=== PATIENT | female | born 1975 | race Caucasian/White ===

== ENCOUNTER 2017-01-21 19:10 | Emergency (ER) | payer MEDICAID ==
[~2017-01-21] VITALS: Ht 152.4 cm; Wt 90.9 kg
[~2017-01-21 19:10] MED LIST: AUGM875T28 PO; VENTAER INH
[2017-01-21] MEDS ORDERED: NS 500 ML IV ONE (23:15)
[2017-01-21] MEDS ORDERED: KETOROLAC 30 MG/ML VIAL (J1885) IV ONE (23:30)
[2017-01-21 23:49] LABS: BASO % 0.2 % (0.0-1.0); EOS # 0.1 10^3/uL (0.0-0.50); IMMATURE GRANULOCYTE % 0.5 % (0-0); LYMPH % 33.2 % (24.0-44.0); MEAN CORPUSCULAR HEMOGLOBIN 32.1 pg (27.0-33.0); MEAN CORPUSCULAR HGB CONC 35.1 g/dl (32.0-36.5); MEAN CORPUSCULAR VOLUME 91.3 fl (80.0-96.0); MONO # 0.9 10^3/uL (0.0-0.8); MONO % 6.2 % (0.0-5.0); NEUTROPHILS # 8.5 10^3/uL (1.8-7.7); NEUTROPHILS % 58.9 % (36.0-66.0); PLATELET COUNT, AUTOMATED 314 10^3/uL (150-450); WHITE BLOOD COUNT 14.4 10^3/uL (4.0-10.0)
[2017-01-21] MEDS ORDERED: KEFL500C17 PO (23:57)
[2017-01-22] MEDS ORDERED: CEFTRIAXONE SOD 1 GM in APPROPRIATE DILUENT 1 EA IV ONE ×2
--- NOTE | 2017-01-22 | REPUSA ---
CT of the abdomen and pelvis without contrast Clinical statement: Pain, CVA tenderness. Technique: Multiple axial CT images were obtained from the base of the lungs to the floor of the pelv is utilizing 5 mm axial slices without administration of contrast. Coronal and sagittal reconstructio ns were also obtained. Comparison: 05/30/2013. Findings: Chest: The visualized lung bases are clear. Abdomen: The kidneys are normal in size bilaterally. There is no evidence of hydronephrosis or nephro lithiasis. The liver is enlarged measuring 25.3 cm in diameter, with diffuse low attenuation of the h epatic parenchyma. No focal hepatic masses are seen. Several small gallstones are seen in the neck of the gallbladder. No inflammatory changes are appreciated. The spleen, pancreas, and adrenal glands a re unremarkable. The aorta demonstrates normal caliber and contour. There is no abdominal lymphadenop athy or ascites. Pelvis: The bowel is unremarkable, with no obstructive or inflammatory changes. The appendix is sonido l. The urinary bladder is within normal limits. There is no pelvic lymphadenopathy or ascites. The ot her pelvic structures appear unremarkable. Bones: There are no suspicious osseous abnormalities seen. Impression: 1. Hepatomegaly with diffuse fatty infiltration of the liver. 2. Cholelithiasis without evidence of acute cholecystitis. 3. No evidence of hydronephrosis or nephrolithiasis. 4. No obstructive or inflammatory bowel changes.
[2017-01-22 00:01] LABS: LYMPH # 4.8 10^3/uL (1.5-4.5)
[2017-01-22 00:12] LABS: ALBUMIN 3.9 GM/DL (3.2-5.2); ALBUMIN/GLOBULIN RATIO 1.15 (1.00-1.93); ALKALINE PHOSPHATASE 80 U/L (45-117); ALT/SGPT 30 U/L (12-78); ANION GAP 7 MEQ/L (8-16); AST/SGOT 18 U/L (7-37); BILIRUBIN,DIRECT 0.1 MG/DL (0.0-0.2); BILIRUBIN,TOTAL 0.5 MG/DL (0.2-1.0); BLOOD UREA NITROGEN 11 MG/DL (7-18); CALCIUM LEVEL 8.9 MG/DL (8.5-10.1); CARBON DIOXIDE LEVEL 28 MEQ/L (21-32); CHLORIDE LEVEL 104 MEQ/L (98-107); CREATININE FOR GFR 0.98 MG/DL (0.55-1.02); GLOMERULAR FILTRATION RATE > 60.0 (>58); GLUCOSE, FASTING 104 MG/DL (70-105); POTASSIUM SERUM 4.3 MEQ/L (3.5-5.1); SODIUM LEVEL 139 MEQ/L (136-145); TOTAL PROTEIN 7.3 GM/DL (6.4-8.2)
[2017-01-22 00:50] VITALS: BP 132/85
== END 2017-01-22 01:01 | disposition home or self-care (01) ==
LOC: M ED 19:10
DX: N10 Acute pyelonephritis (principal)
CPT/HCPCS: 74176; 80048; 80076; 81001; 83690; 85025; 87088; 87186; 96365; 96375; 99284; J1885

== ENCOUNTER 2017-10-19 19:26 | Emergency (ER) | payer MEDICAID ==
[2017-10-19] MEDS: predniSONE 20 MG TAB PO (20:13)
[2017-10-19] MEDS: NORCO, ANEXSIA 5/325MG TABLET (HYDROcodone/ACETAMINOPHEN) PO (20:13)
[2017-10-19] MEDS: IPRATROPIUM 0.5MG/ALBUTEROL 2.5MG INH SOL UD 3ML (DUONEB)(J7620) NEB (20:43)
[2017-10-19] MEDS: ALBUTEROL SULFATE 2.5 MG/0.5 ML INH NEB SOLN NEB (20:43)
[2017-10-19] MEDS: AZITHROMYCIN 250 MG TAB PO (21:01)
== END 2017-10-19 21:13 | disposition home or self-care (01) ==
LOC: M ED 19:26
DX: J20.9 Acute bronchitis, unspecified (principal); J45.909 Unspecified asthma, uncomplicated; S46.912A Strain of unspecified muscle, fascia and tendon at shoulder and upper arm level, left arm, initial encounter; X58.XXXA Exposure to other specified factors, initial encounter; Y92.89 Other specified places as the place of occurrence of the external cause; R51 Headache; Z87.19 Personal history of other diseases of the digestive system; F17.210 Nicotine dependence, cigarettes, uncomplicated; Z91.040 Latex allergy status
CPT/HCPCS: 71046

== ENCOUNTER 2018-09-18 21:08 | Emergency (ER) | payer MEDICAID, SELFPAY ==
[~2018-09-18] VITALS: Ht 152.4 cm; Wt 90.9 kg
[~2018-09-18 21:08] MED LIST changes: +ALBU83IN INH; +ALBU83IN NEB; +HYDR-3715 PO; +KEFL500C17 PO; +PRED20TA PO; +TYLE500T78 PO; +ZITHTAB PO
[2018-09-18 23:21] VITALS: BP 185/97
[2018-09-18] MEDS ORDERED: diphenhydrAMINE INJ 50MG/ML VIAL (J1200) IV STA (23:32)
[2018-09-18] MEDS ORDERED: KETOROLAC 30 MG/ML VIAL (J1885) IV ONE (23:45)
[2018-09-18] MEDS ORDERED: NS 1,000 ML IV ONE (23:45)
[2018-09-18] MEDS ORDERED: METOCLOPRAMIDE INJ 10MG/2ML VIAL (J2765) IV ONE (23:45)
[2018-09-19] MEDS ORDERED: REGL10TA6 PO (01:09)
== END 2018-09-19 01:28 | disposition home or self-care (01) ==
LOC: M ED 21:08
DX: G43.909 Migraine, unspecified, not intractable, without status migrainosus (principal); J45.909 Unspecified asthma, uncomplicated
CPT/HCPCS: 96374; 96375; 99284; J1200; J1885; J2765

== ENCOUNTER 2019-05-01 20:37 | Emergency (ER) | payer SELFPAY ==
[~2019-05-01] VITALS: Ht 152.4 cm; Wt 97.5 kg
[~2019-05-01 20:37] MED LIST changes: +REGL10TA6 PO
[2019-05-01 21:10] LABS: HEMOGLOBIN 15.6 g/dl (12.0-15.5); MEAN CORPUSCULAR HEMOGLOBIN 30.6 pg (27.0-33.0); MEAN CORPUSCULAR HGB CONC 33.9 g/dl (32.0-36.5); MEAN CORPUSCULAR VOLUME 90.4 fl (80.0-96.0); PLATELET COUNT, AUTOMATED 292 10^3/uL (150-450); RED BLOOD COUNT 5.09 10^6/uL (4.00-5.40); WHITE BLOOD COUNT 11.6 10^3/uL (4.0-10.0)
[2019-05-01 21:29] LABS: ATYPICAL LYMPH 3 % (0-5); BASOPHILS 1 % (0-1); EOSINOPHILS 1 % (0-3); LYMPHOCYTES 42 % (16-44); MONOCYTES 2 % (0-5); NEUTROPHILS 51 % (28-66)
[2019-05-01 21:30] LABS: ANISOCYTOSIS 1+
[2019-05-01 21:32] LABS: OVALOCYTES 1+; PLATELET ESTIMATE NORMAL (NORMAL); TEAR DROP CELLS 1+
[2019-05-01 21:36] LABS: BLOOD UREA NITROGEN 11 MG/DL (7-18); CALCIUM LEVEL 9.1 MG/DL (8.5-10.1); CARBON DIOXIDE LEVEL 29 MEQ/L (21-32); CHLORIDE LEVEL 105 MEQ/L (98-107); CK-MB VALUE MASS 1.9 NG/ML (<3.6); CPK CREATINE PHOSPHOKINASE 209 U/L (26-192); CREATININE FOR GFR 1.01 MG/DL (0.55-1.30); GLOMERULAR FILTRATION RATE > 60.0 (>58); GLUCOSE, FASTING 132 MG/DL (70-100); MB/CK RELATIVE INDEX 0.91 (< OR =4); POTASSIUM SERUM 3.8 MEQ/L (3.5-5.1); SODIUM LEVEL 141 MEQ/L (136-145); TROPONIN I < 0.02 NG/ML (< 0.10)
[2019-05-01] MEDS ORDERED: LORazepam 2 MG/ML VIAL (J2060) IV STA (21:56)
[2019-05-01 23:41] LABS: CK-MB VALUE MASS 1.8 NG/ML (<3.6); MB/CK RELATIVE INDEX 1.12 (< OR =4); TROPONIN I 0.02 NG/ML (< 0.10)
[2019-05-02] MEDS ORDERED: NORV5TAB PO (00:41)
[2019-05-02] MEDS ORDERED: NAPR-837 PO (00:41)
[2019-05-02] MEDS ORDERED: amLODIPine 5 MG TAB PO ONE (00:45)
[2019-05-02] MEDS ORDERED: NAPROXEN 250 MG TAB PO ONE (00:45)
[2019-05-02 00:57] VITALS: BP 168/84
[2019-05-02 01:00] VITALS: BP 168/84
--- NOTE | 2019-05-02 08:12 | REP ---
Portable chest x-ray: Single view. History: Chest pain. Comparison study: October 19, 2017. Findings: The lungs are symmetrically aerated and clear. Pleural angles are sharp. Heart is not enlarged. Pulmonary vasculature is not increased. Impression: No active disease. Electronically Signed by Med Shaver MD 05/02/2019 08:03 A
--- NOTE | 2019-05-02 18:44 | ECGEPIP ---
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
--- NOTE | 2019-05-02 18:45 | ECGEPIP ---
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
== END 2019-05-02 01:00 | disposition home or self-care (01) ==
LOC: M ED 20:37
DX: R07.89 Other chest pain (principal); I10 Essential (primary) hypertension; J45.909 Unspecified asthma, uncomplicated; Z91.040 Latex allergy status
CPT/HCPCS: 36415; 71045; 80048; 82550; 82553; 84484; 85025; 93005; 93041; 94760; 96374; 99285; J2060

== ENCOUNTER 2019-06-11 23:01 | Emergency (ER) | payer MEDICAID, SELFPAY ==
[~2019-06-11] VITALS: Ht 152.4 cm; Wt 97.7 kg
[~2019-06-11 23:01] MED LIST changes: +NAPR-837 PO; +NORV5TAB PO
[2019-06-11 23:44] LABS: BASO # 0.1 10^3/uL (0.0-0.2); BASO % 0.4 % (0.0-1.0); EOS # 0.2 10^3/uL (0.0-0.5); EOS % 1.1 % (0.0-3.0); HEMATOCRIT 45.2 % (36.0-47.0); HEMOGLOBIN 15.4 g/dl (12.0-15.5); LYMPH # 5.5 10^3/uL (1.5-5.0); LYMPH % 39.6 % (24.0-44.0); MEAN CORPUSCULAR HEMOGLOBIN 30.5 pg (27.0-33.0); MEAN CORPUSCULAR HGB CONC 34.1 g/dl (32.0-36.5); MEAN CORPUSCULAR VOLUME 89.5 fl (80.0-96.0); MONO # 1.1 10^3/uL (0.0-0.8); MONO % 7.9 % (0.0-5.0); NEUTROPHILS # 7.1 10^3/uL (1.5-8.5); NEUTROPHILS % 50.7 % (36.0-66.0); PLATELET COUNT, AUTOMATED 245 10^3/uL (150-450); RED BLOOD COUNT 5.05 10^6/uL (4.00-5.40)
[2019-06-11 23:49] LABS: WHITE BLOOD COUNT 13.9 10^3/uL (4.0-10.0)
[2019-06-11 23:53] VITALS: BP 166/88
[2019-06-12 00:05] LABS: HEMOGLOBIN A1c 5.7 %
[2019-06-12 00:18] LABS: ERYTHROCYTE SEDIMENTATION RATE 7 mm/hr (0-20)
[2019-06-12] MEDS ORDERED: NORV5TAB PO (00:22)
[2019-06-12] MEDS ORDERED: VENTAER INH (00:22)
[2019-06-12 00:26] LABS: APPEARANCE, URINE HAZY (CLEAR); BACTERIA, URINE AUTO NEGATIVE (NEGATIVE); BILIRUBIN, URINE AUTO NEGATIVE (NEGATIVE); BLOOD, URINE BLOOD 3+ (NEGATIVE); CALCIUM OXALATE CRYSTALS SMALL; COLOR, URINE YELLOW (YELLOW); GLUCOSE, URINE (UA) AUTO NEGATIVE (NEGATIVE); KETONE, URINE AUTO NEGATIVE (NEGATIVE); LEUKOCYTE ESTERASE, URINE AUTO NEGATIVE (NEGATIVE); MUCUS, URINE SMALL (NEGATIVE); NITRITE, URINE AUTO NEGATIVE (NEGATIVE); PROTEIN, URINE AUTO 2+ mg/dL (NEGATIVE); RBC, URINE AUTO 155 /HPF (0-3); SPECIFIC GRAVITY URINE AUTO 1.024 (1.002-1.035); SQUAMOUS EPITHELIAL CELL UR AU 1 /HPF (0-6); UROBILINOGEN, URINE AUTO 0.2 mg/dL (0.0-2.0); WBC, URINE AUTO 3 /HPF (0-3)
--- NOTE | 2019-06-12 02:00 | REP ---
Clinical: Wheezing . Comparison: 10/19/2017, 05/01/2019 . Technique: PA and lateral. Findings: The mediastinum and cardiac silhouette are normal. The lung xiao are clear and without acute consolidation, effusion, or pneumothorax. The skeletal structures are intact and normal. Impression: 1. No acute cardiopulmonary process. Electronically Signed by Riki Dodge MD 06/12/2019 01:51 A
--- NOTE | 2019-06-13 00:47 | ECGEPIP ---
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
== END 2019-06-12 00:35 | disposition home or self-care (01) ==
LOC: M ED 23:01
DX: L84 Corns and callosities (principal); I10 Essential (primary) hypertension; R00.0 Tachycardia, unspecified; J45.909 Unspecified asthma, uncomplicated; F17.210 Nicotine dependence, cigarettes, uncomplicated; Z91.040 Latex allergy status; Z79.51 Long term (current) use of inhaled steroids; Z79.899 Other long term (current) drug therapy

== ENCOUNTER → 2019-06-18 | Outpatient (REF) | payer MEDICAID ==
[2019-06-18 13:22] LABS: BASO % 0.3 % (0.0-1.0); EOS # 0.2 10^3/uL (0.0-0.5); EOS % 1.3 % (0.0-3.0); HEMATOCRIT 48.3 % (36.0-47.0); HEMOGLOBIN 16.4 g/dl (12.0-15.5); LYMPH # 4.2 10^3/uL (1.5-5.0); LYMPH % 32.1 % (24.0-44.0); MEAN CORPUSCULAR HEMOGLOBIN 30.5 pg (27.0-33.0); MEAN CORPUSCULAR VOLUME 89.9 fl (80.0-96.0); MONO # 0.8 10^3/uL (0.0-0.8); MONO % 6.1 % (0.0-5.0); NEUTROPHILS # 7.8 10^3/uL (1.5-8.5); NEUTROPHILS % 59.8 % (36.0-66.0); PLATELET COUNT, AUTOMATED 286 10^3/uL (150-450); RED BLOOD COUNT 5.37 10^6/uL (4.00-5.40); WHITE BLOOD COUNT 13.1 10^3/uL (4.0-10.0)
[2019-06-18 13:24] LABS: AMORPHOUS SEDIMENT SMALL (NEGATIVE); APPEARANCE, URINE TURBID (CLEAR); BACTERIA, URINE AUTO NEGATIVE (NEGATIVE); BILIRUBIN, URINE AUTO NEGATIVE (NEGATIVE); BLOOD, URINE BLOOD 1+ (NEGATIVE); COLOR, URINE YELLOW (YELLOW); GLUCOSE, URINE (UA) AUTO NEGATIVE (NEGATIVE); KETONE, URINE AUTO TRACE mg/dL (NEGATIVE); LEUKOCYTE ESTERASE, URINE AUTO NEGATIVE (NEGATIVE); MUCUS, URINE SMALL (NEGATIVE); NITRITE, URINE AUTO NEGATIVE (NEGATIVE); PROTEIN, URINE AUTO 2+ mg/dL (NEGATIVE); RBC, URINE AUTO 1 /HPF (0-3); SPECIFIC GRAVITY URINE AUTO 1.024 (1.002-1.035); SQUAMOUS EPITHELIAL CELL UR AU 5 /HPF (0-6); UROBILINOGEN, URINE AUTO 0.2 mg/dL (0.0-2.0); WBC, URINE AUTO 1 /HPF (0-3)
[2019-06-18 13:41] LABS: ALBUMIN 3.7 GM/DL (3.2-5.2); ALT/SGPT 29 U/L (12-78); BILIRUBIN,TOTAL 0.3 MG/DL (0.2-1.0); BLOOD UREA NITROGEN 9 MG/DL (7-18); CARBON DIOXIDE LEVEL 25 MEQ/L (21-32); CHLORIDE LEVEL 104 MEQ/L (98-107); CHOLESTEROL LEVEL 222 MG/DL (<200); CHOLESTEROL RISK RATIO 6.937 (<5); CREATININE FOR GFR 0.85 MG/DL (0.55-1.30); FERRITIN 24 NG/ML (8-252); FOLATE 10.5 NG/ML (>5.4); FREE T4 1.07 NG/DL (0.76-1.46); GLOMERULAR FILTRATION RATE > 60.0 (>58); GLUCOSE, FASTING 124 MG/DL (70-100); HDL CHOLESTEROL 32 MG/DL (>40); IRON (FE) 50 UG/DL (50-170); LDL CHOLESTEROL 128 MG/DL (<100); MAGNESIUM LEVEL 1.8 MG/DL (1.8-2.4); NON-HDL-C 190 MG/DL; POTASSIUM SERUM 4.2 MEQ/L (3.5-5.1); SODIUM LEVEL 137 MEQ/L (136-145); TOTAL 25(OH) VITAMIN D 8.1 NG/ML (30.0-100.0); TRIGLYCERIDES LEVEL 310 MG/DL (<150); VITAMIN B12 LEVEL 325 PG/ML (247-911)
== END ==
LOC: M LAB REF 12:11
PROVIDERS: ATTEND Nurse Practitioner Family
DX: Z13.29 Encounter for screening for other suspected endocrine disorder (principal); Z13.9 Encounter for screening, unspecified; E66.9 Obesity, unspecified; I10 Essential (primary) hypertension

== ENCOUNTER 2019-07-12 13:26 | Emergency (ER) | payer MEDICAID, OTHER ==
[~2019-07-12] VITALS: Ht 152.4 cm; Wt 98.2 kg
[2019-07-12] MEDS ORDERED: NORCO, ANEXSIA 5/325MG TABLET (HYDROcodone/ACETAMINOPHEN) PO ONE (14:00)
[2019-07-12] MEDS ORDERED: GABAPENTIN 300 MG CAP PO ONE (14:00)
--- NOTE | 2019-07-12 14:40 | REP ---
Clinical: Left shoulder pain . Technique: Internal rotation, external rotation, and Y view left shoulder . Findings: No acute fracture or dislocation. The acromioclavicular and glenohumeral joints are intact. No periarticular calcifications or degenerative changes are appreciated. Sub acromial space is normal. Surrounding soft tissues are unremarkable. Impression: Normal age-appropriate left shoulder radiographs. Electronically Signed by Riki Dodge MD 07/12/2019 02:31 P
--- NOTE | 2019-07-12 14:41 | REP ---
Clinical: Left upper extremity radiculopathy. Technique: Axial noncontrast images from the skull base to the thoracic inlet with coronal and sagittal re-formations. Comparison: 11/14/2015. Findings:Straightening of normal lordosis noted along with minimal disc space narrowing and small posterior osteophytes primarily involving C5-6 and C4-5. Spinal canal is patent. Posterior elements and spinous processes are intact. No acute fracture / compression injury or subluxation. Surrounding soft tissues are unremarkable. Impression:Minimal degenerative changes at C4-5 and C5-6. Electronically Signed by Riki Dodge MD 07/12/2019 02:32 P
[2019-07-12] MEDS ORDERED: NEUR300C PO (14:55)
[2019-07-12] MEDS ORDERED: NORC1TAB7 PO (14:55)
[2019-07-12] MEDS ORDERED: CYCL5TAB PO (14:55)
[2019-07-12 15:04] VITALS: BP 166/91
== END 2019-07-12 15:06 | disposition home or self-care (01) ==
LOC: M ED 13:26
DX: M54.12 Radiculopathy, cervical region (principal); R20.2 Paresthesia of skin; I10 Essential (primary) hypertension; G43.909 Migraine, unspecified, not intractable, without status migrainosus; J45.909 Unspecified asthma, uncomplicated; F17.200 Nicotine dependence, unspecified, uncomplicated; Z91.040 Latex allergy status; Z79.899 Other long term (current) drug therapy; Z79.1 Long term (current) use of non-steroidal anti-inflammatories (NSAID)

== ENCOUNTER 2019-10-19 22:28 | Emergency (ER) | payer OTHER ==
[~2019-10-19] VITALS: Ht 152.4 cm; Wt 97.4 kg
[2019-10-19 22:28] VITALS: BP 143/83
[~2019-10-19 22:28] MED LIST changes: +CYCL5TAB PO; +NEUR300C PO; +NORC1TAB7 PO
[2019-10-19] MEDS ORDERED: CLAR10CA3 PO (23:16)
[2019-10-19] MEDS ORDERED: IBUP-1022 PO (23:16)
== END 2019-10-20 01:59 | disposition left against medical advice (07) ==
LOC: M ED 22:28
DX: Z53.21 Procedure and treatment not carried out due to patient leaving prior to being seen by health care provider (principal)

== ENCOUNTER → 2020-01-06 | Outpatient (REF) | payer OTHER ==
[~2020-01-06] MED LIST changes: +CLAR10CA3 PO; +IBUP-1022 PO
[2020-01-06 12:16] LABS: BASO # 0.1 10^3/uL (0.0-0.2); BASO % 0.4 % (0.0-1.0); EOS # 0.2 10^3/uL (0.0-0.5); EOS % 1.5 % (0.0-3.0); HEMATOCRIT 48.3 % (36.0-47.0); HEMOGLOBIN 16.1 g/dl (12.0-15.5); LYMPH # 3.8 10^3/uL (1.5-5.0); MEAN CORPUSCULAR HEMOGLOBIN 30.4 pg (27.0-33.0); MEAN CORPUSCULAR HGB CONC 33.3 g/dl (32.0-36.5); MEAN CORPUSCULAR VOLUME 91.1 fl (80.0-96.0); MONO # 0.9 10^3/uL (0.0-0.8); MONO % 6.8 % (0.0-5.0); NEUTROPHILS # 8.5 10^3/uL (1.5-8.5); NEUTROPHILS % 62.9 % (36.0-66.0); PLATELET COUNT, AUTOMATED 290 10^3/uL (150-450); WHITE BLOOD COUNT 13.5 10^3/uL (4.0-10.0)
[2020-01-06 12:58] LABS: ALBUMIN 3.7 GM/DL (3.2-5.2); ALT/SGPT 26 U/L (12-78); BILIRUBIN,TOTAL 0.4 MG/DL (0.2-1.0); BLOOD UREA NITROGEN 8 MG/DL (7-18); CALCIUM LEVEL 8.9 MG/DL (8.5-10.1); CARBON DIOXIDE LEVEL 27 MEQ/L (21-32); CHLORIDE LEVEL 106 MEQ/L (98-107); CHOLESTEROL LEVEL 218 MG/DL (<200); CHOLESTEROL RISK RATIO 6.411 (<5); CREATININE FOR GFR 0.92 MG/DL (0.55-1.30); FREE T4 1.04 NG/DL (0.76-1.46); GLOMERULAR FILTRATION RATE > 60.0 (>58); GLUCOSE, FASTING 112 MG/DL (70-100); HDL CHOLESTEROL 34 MG/DL (>40); LDL CHOLESTEROL 126 MG/DL (<100); NON-HDL-C 184 MG/DL; POTASSIUM SERUM 4.6 MEQ/L (3.5-5.1); SODIUM LEVEL 139 MEQ/L (136-145); TOTAL 25(OH) VITAMIN D 26.1 NG/ML (30.0-100.0); TOTAL PROTEIN 6.6 GM/DL (6.4-8.2); TRIGLYCERIDES LEVEL 288 MG/DL (<150)
[2020-01-06 13:08] LABS: HEMOGLOBIN A1c 5.6 %
== END ==
LOC: M LAB REF 11:33
PROVIDERS: ATTEND Nurse Practitioner Family
DX: E78.5 Hyperlipidemia, unspecified (principal); R73.03 Prediabetes; I10 Essential (primary) hypertension

== ENCOUNTER → 2020-04-05 | Outpatient (REF) | payer OTHER ==
[2020-04-05 13:36] LABS: HEMOGLOBIN A1c 5.7 %
[2020-04-05 13:42] LABS: ALBUMIN 3.5 GM/DL (3.2-5.2); ALT/SGPT 30 U/L (12-78); BILIRUBIN,TOTAL 0.4 MG/DL (0.2-1.0); BLOOD UREA NITROGEN 11 MG/DL (7-18); CALCIUM LEVEL 9.2 MG/DL (8.5-10.1); CARBON DIOXIDE LEVEL 25 MEQ/L (21-32); CHLORIDE LEVEL 106 MEQ/L (98-107); CHOLESTEROL LEVEL 216 MG/DL (<200); CREATININE FOR GFR 0.98 MG/DL (0.55-1.30); GLOMERULAR FILTRATION RATE > 60.0 (>58); GLUCOSE, FASTING 117 MG/DL (70-100); HDL CHOLESTEROL 32 MG/DL (>40); LDL CHOLESTEROL 128 MG/DL (<100); NON-HDL-C 184 MG/DL; POTASSIUM SERUM 4.1 MEQ/L (3.5-5.1); SODIUM LEVEL 141 MEQ/L (136-145); TOTAL PROTEIN 6.6 GM/DL (6.4-8.2); TRIGLYCERIDES LEVEL 279 MG/DL (<150)
[2020-04-05 15:18] LABS: TOTAL 25(OH) VITAMIN D 17.5 NG/ML (30.0-100.0)
[2020-04-05 15:25] LABS: BASO % 0.3 % (0.0-1.0); EOS # 0.2 10^3/uL (0.0-0.5); EOS % 1.7 % (0.0-3.0); HEMATOCRIT 46.1 % (36.0-47.0); HEMOGLOBIN 15.2 g/dl (12.0-15.5); LYMPH # 3.6 10^3/uL (1.5-5.0); LYMPH % 27.2 % (24.0-44.0); MEAN CORPUSCULAR HEMOGLOBIN 30.4 pg (27.0-33.0); MEAN CORPUSCULAR VOLUME 92.2 fl (80.0-96.0); MONO # 0.9 10^3/uL (0.0-0.8); MONO % 6.5 % (0.0-5.0); NEUTROPHILS # 8.5 10^3/uL (1.5-8.5); NEUTROPHILS % 63.9 % (36.0-66.0); PLATELET COUNT, AUTOMATED 291 10^3/uL (150-450); WHITE BLOOD COUNT 13.4 10^3/uL (4.0-10.0)
== END ==
LOC: M LAB REF 12:19
PROVIDERS: ATTEND Nurse Practitioner Family
DX: E78.5 Hyperlipidemia, unspecified (principal)

== ENCOUNTER → 2020-04-14 | Outpatient (CLI) | payer OTHER ==
--- NOTE | 2020-04-14 16:07 | ECGEPIP ---
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
== END ==
LOC: M EKG 10:16
PROVIDERS: ATTEND Nurse Practitioner Family
DX: F41.8 Other specified anxiety disorders (principal); R00.0 Tachycardia, unspecified; I25.2 Old myocardial infarction

== ENCOUNTER → 2020-05-19 | Outpatient (REF) | payer OTHER | LOC: M LAB REF 16:29 | PROVIDERS: ATTEND Nurse Practitioner Family | DX: Z12.4 Encounter for screening for malignant neoplasm of cervix (principal) ==

== ENCOUNTER → 2020-07-13 | Outpatient (REF) | payer OTHER, MEDICAID | LOC: M SFHCWAGY 16:53 | PROVIDERS: ATTEND Obstetrics & Gynecology | DX: R87.613 High grade squamous intraepithelial lesion on cytologic smear of cervix (HGSIL) (principal) ==

== ENCOUNTER → 2020-07-13 | Outpatient (REF) | payer OTHER, MEDICAID | LOC: M PLALAB 15:11 | PROVIDERS: ATTEND Obstetrics & Gynecology | DX: R87.613 High grade squamous intraepithelial lesion on cytologic smear of cervix (HGSIL) (principal) ==

== ENCOUNTER 2020-07-18 17:11 | Emergency (ER) | payer MEDICAID, OTHER ==
[~2020-07-18] VITALS: Ht 152.4 cm; Wt 104.5 kg
--- NOTE | 2020-07-18 17:36 | REP ---
INDICATION: cough/congestion COMPARISON: 06/11/2019 TECHNIQUE: PA and lateral. FINDINGS: The mediastinum and cardiac silhouette are normal. The lung xiao are clear and without acute consolidation, effusion, or pneumothorax. The skeletal structures are intact and normal. IMPRESSION: No acute cardiopulmonary process. <Electronically signed by Riki Dodge > 07/18/20 [id number]
[2020-07-18 19:20] VITALS: BP 140/76
[2020-07-18] MEDS ORDERED: SM N (19:33)
== END 2020-07-18 19:58 | disposition home or self-care (01) ==
LOC: M ED 17:11
DX: R07.89 Other chest pain (principal); J01.90 Acute sinusitis, unspecified; I10 Essential (primary) hypertension; J45.909 Unspecified asthma, uncomplicated; G43.909 Migraine, unspecified, not intractable, without status migrainosus; K80.20 Calculus of gallbladder without cholecystitis without obstruction; K76.0 Fatty (change of) liver, not elsewhere classified; Z79.899 Other long term (current) drug therapy; Z91.040 Latex allergy status

== ENCOUNTER → 2020-09-24 | Outpatient (CLI) | payer OTHER, MEDICAID ==
[~2020-09-24] MED LIST changes: +ALBU90AE IH; +AMLO1TAB25 PO; +SM N
== END ==
LOC: M LABSMTC 09:06
PROVIDERS: ATTEND Anesthesiology
DX: Z01.818 Encounter for other preprocedural examination (principal); Z11.52 Encounter for screening for COVID-19

== ENCOUNTER 2020-09-29 06:46 | Day surgery (SDC) | payer OTHER ==
[~2020-09-29] VITALS: Ht 152.4 cm; Wt 107.4 kg
[~2020-09-29 06:46] MED LIST changes: +LIDOCAINE 1% MDV 20ML VIAL SQ PRN; +LR 1,000 ML IV ONE
[2020-09-29] MEDS ORDERED: CLAR10CA3 PO (07:03)
[2020-09-29 07:14] LABS: HEMATOCRIT 44.8 % (36.0-47.0); HEMOGLOBIN 14.7 g/dl (12.0-15.5)
[2020-09-29] MEDS ORDERED: propofoL 200 MG/20 ML VIAL As Ordered ONE (07:18)
[2020-09-29] MEDS ORDERED: MIDAZOLAM INJ 2MG/2ML VIAL (J2250 PER 1MG) As Ordered ONE (07:18)
[2020-09-29] MEDS ORDERED: KETOROLAC 60MG 2ML VIAL As Ordered ONE (07:18)
[2020-09-29] MEDS ORDERED: ONDANSETRON 4MG/2ML VIAL As Ordered ONE (07:18)
[2020-09-29] MEDS ORDERED: dexameTHASONE 4 MG/ML 1ML VIAL (J1100 PER 1MG) As Ordered ONE (07:18)
[2020-09-29] MEDS ORDERED: LIDOCAINE 2% 100MG/5ML SDV (FOR ANES.) As Ordered ONE (07:18)
[2020-09-29] MEDS ORDERED: fentaNYL 100 MCG/2 ML INJECTION As Ordered ONE (07:19)
[2020-09-29] MEDS ORDERED: LIDOCAINE W/EPINEPHRINE 1% 20ML VIAL As Ordered ONE (07:20)
[2020-09-29] MEDS ORDERED: SILVER NITRATE APPLICATOR As Ordered ONE (07:20)
[2020-09-29] MEDS ORDERED: IODINE STRONG SOLN 15 ML BTL As Ordered ONE (07:20)
[2020-09-29 07:43] LABS: HCG, SERUM QUALITATIVE NEGATIVE (NEGATIVE)
[2020-09-29] MEDS ORDERED: ACETAMINOPHEN 1000MG 100ML IV BTL (OFIRMEV) (J0131 PER 10MG) As Ordered ONE (08:21)
[2020-09-29] MEDS ORDERED: IBUP80TA PO (09:10)
[2020-09-29] MEDS ORDERED: fentaNYL 100 MCG/2 ML INJECTION IV PRN (09:10)
[2020-09-29] MEDS ORDERED: LR 1,000 ML IV SCH (09:10)
[2020-09-29] MEDS ORDERED: HYDROMORPHONE HCL 0.5 MG/ 0.5 ML SYRINGE (J1170 PER 1) IV PRN (09:10)
[2020-09-29] MEDS ORDERED: oxyCODONE 5MG TAB PO PRN (09:10)
[2020-09-29] MEDS ORDERED: ONDANSETRON 4MG/2ML VIAL IV PRN (09:10)
[2020-09-29 10:15] VITALS: BP 145/74
== END 2020-09-29 10:15 | disposition home or self-care (01) ==
LOC: M SDC 06:46
PROVIDERS: ATTEND Obstetrics & Gynecology
DX: N87.1 Moderate cervical dysplasia (principal); N92.0 Excessive and frequent menstruation with regular cycle; I10 Essential (primary) hypertension; J45.909 Unspecified asthma, uncomplicated; Z79.899 Other long term (current) drug therapy; Z91.040 Latex allergy status; G43.909 Migraine, unspecified, not intractable, without status migrainosus; K76.0 Fatty (change of) liver, not elsewhere classified; F41.9 Anxiety disorder, unspecified; F32.9 Major depressive disorder, single episode, unspecified
CPT/HCPCS: 36415; 57522; 84703; 85014; 85018; 86850; 86900; 86901; 88305; 88307; J0131; J1100; J1885; J2250; J2405; J3010

== ENCOUNTER 2020-10-28 18:35 | Emergency (ER) | payer OTHER ==
[~2020-10-28] VITALS: Ht 152.4 cm; Wt 108.6 kg
[~2020-10-28 18:35] MED LIST changes: +IBUP80TA PO; -LIDOCAINE 1% MDV 20ML VIAL SQ PRN; -LR 1,000 ML IV ONE
[2020-10-28 18:53] VITALS: BP 178/100
== END 2020-10-28 21:48 | disposition left against medical advice (07) ==
LOC: M ED 18:35
DX: Z53.21 Procedure and treatment not carried out due to patient leaving prior to being seen by health care provider (principal)

== ENCOUNTER → 2021-01-23 | Outpatient (CLI) | payer OTHER | LOC: M WHC 12:59 | PROVIDERS: ATTEND Family Medicine Addiction Medicine | DX: R92.8 Other abnormal and inconclusive findings on diagnostic imaging of breast (principal); N63.24 Unspecified lump in the left breast, lower inner quadrant | CPT/HCPCS: 76642; 77065; G0279 ==

== ENCOUNTER 2021-05-22 12:53 | Emergency (ER) | payer OTHER ==
[~2021-05-22] VITALS: Ht 152.4 cm; Wt 104.0 kg
[2021-05-22] MEDS ORDERED: GABA-282 PO (13:06)
[2021-05-22] MEDS ORDERED: CYCL-707 PO (13:06)
[2021-05-22] MEDS ORDERED: NITROGLYCERIN 2% OINT 1 GM *U/D* PKT TOP ONE (13:35)
[2021-05-22 13:38] LABS: BASO # 0.1 10^3/uL (0.0-0.2); BASO % 0.4 % (0.0-1.0); EOS # 0.2 10^3/uL (0.0-0.5); EOS % 1.4 % (0.0-3.0); HEMATOCRIT 45.3 % (36.0-47.0); HEMOGLOBIN 14.6 g/dl (12.0-15.5); LYMPH # 4.9 10^3/uL (1.5-5.0); LYMPH % 35.2 % (24.0-44.0); MEAN CORPUSCULAR HEMOGLOBIN 26.4 pg (27.0-33.0); MEAN CORPUSCULAR HGB CONC 32.2 g/dl (32.0-36.5); MEAN CORPUSCULAR VOLUME 81.8 fl (80.0-96.0); MONO # 1.1 10^3/uL (0.0-0.8); MONO % 8.3 % (2.0-8.0); NEUTROPHILS # 7.5 10^3/uL (1.5-8.5); NEUTROPHILS % 54.2 % (36.0-66.0); PLATELET COUNT, AUTOMATED 303 10^3/uL (150-450); RED BLOOD COUNT 5.54 10^6/uL (4.00-5.40); WHITE BLOOD COUNT 13.8 10^3/uL (4.0-10.0)
[2021-05-22] MEDS ORDERED: COMBIVENT RESPIMAT 100-20MCG INHALER 4GM INH ONE (13:45)
[2021-05-22] MEDS ORDERED: ACETAMINOPHEN TAB 650MG DOSE (2X325MG) PO ONE (13:50)
[2021-05-22 13:51] LABS: INR 0.94
[2021-05-22 13:52] LABS: PARTIAL THROMBOPLASTIN TIME 29.8 SECONDS (25.9-37.0)
[2021-05-22 14:07] LABS: HCG, SERUM QUALITATIVE NEGATIVE (NEGATIVE)
[2021-05-22 14:11] LABS: CK-MB VALUE MASS 4.8 NG/ML (<3.6); MB/CK RELATIVE INDEX 2.46 (< OR =4)
[2021-05-22 14:21] LABS: ALBUMIN 3.5 GM/DL (3.2-5.2); ALT/SGPT 40 U/L (12-78); BILIRUBIN,DIRECT < 0.1 MG/DL (0.0-0.2); BILIRUBIN,TOTAL 0.4 MG/DL (0.2-1.0); BLOOD UREA NITROGEN 12 MG/DL (7-18); CALCIUM LEVEL 9.4 MG/DL (8.5-10.1); CARBON DIOXIDE LEVEL 30 MEQ/L (21-32); CHLORIDE LEVEL 106 MEQ/L (98-107); CREATININE FOR GFR 0.92 MG/DL (0.55-1.30); FREE T4 0.99 NG/DL (0.76-1.46); GLOMERULAR FILTRATION RATE > 60.0 (>58); GLUCOSE, FASTING 71 MG/DL (70-100); LIPASE 73 U/L (73-393); NT-PRO BNP 161 PG/ML (<125); POTASSIUM SERUM 5.8 MEQ/L (3.5-5.1); SODIUM LEVEL 139 MEQ/L (136-145); TOTAL PROTEIN 7.3 GM/DL (6.4-8.2)
[2021-05-22 14:49] LABS: CK-MB VALUE MASS 4.4 NG/ML (<3.6); MB/CK RELATIVE INDEX 2.59 (< OR =4)
[2021-05-22] MEDS ORDERED: ISOVUE-370 76% 100ML VIAL As Ordered ONE (15:17)
[2021-05-22] MEDS ORDERED: CHLORTHALIDONE 12.5MG PER 1/2 TABLET PO ONE (16:40)
[2021-05-22] MEDS ORDERED: CARVedilol 6.25 MG TAB PO ONE (16:40)
[2021-05-22 16:45] VITALS: BP 181/105
[2021-05-22] MEDS ORDERED: CORE6.25 PO (17:16)
[2021-05-22] MEDS ORDERED: CHLO125TA PO (17:16)
[2021-05-22 17:40] VITALS: BP 140/90
== END 2021-05-22 17:52 | disposition home or self-care (01) ==
LOC: M ED 12:53
DX: R07.9 Chest pain, unspecified (principal); M54.12 Radiculopathy, cervical region; I10 Essential (primary) hypertension; G43.909 Migraine, unspecified, not intractable, without status migrainosus; J45.909 Unspecified asthma, uncomplicated; Z91.040 Latex allergy status; Z79.51 Long term (current) use of inhaled steroids; Z79.899 Other long term (current) drug therapy
CPT/HCPCS: 36415; 71045; 71275; 80048; 80076; 82088; 82550; 82553; 83690; 83880; 84244; 84439; 84443; 84703; 85025; 85610; 85730; 87798; 93005; 93041; 94640; 94760; 99285; Q9967

== ENCOUNTER → 2021-09-05 | Outpatient (CLI) | payer OTHER ==
[~2021-09-05] MED LIST changes: +ALBU2.5V10 INH; +ALBU2.5V10 NEB; -ALBU83IN INH; -ALBU83IN NEB; +CHLO125TA PO; +CORE6.25 PO; +CYCL-707 PO; +GABA-282 PO
== END ==
LOC: M RAD 16:41
PROVIDERS: ATTEND Family Medicine Addiction Medicine
DX: M54.50 Low back pain, unspecified (principal)

== ENCOUNTER → 2021-10-02 | Outpatient (CLI) | payer OTHER | LOC: M CARPUL 11:20 | PROVIDERS: ATTEND Internal Medicine Cardiovascular Disease | DX: R06.83 Snoring (principal); R94.31 Abnormal electrocardiogram [ECG] [EKG]; I35.9 Nonrheumatic aortic valve disorder, unspecified | CPT/HCPCS: 93306; G0399 ==

== ENCOUNTER 2022-03-18 18:21 | Emergency (ER) | payer OTHER ==
[~2022-03-18] VITALS: Ht 162.6 cm; Wt 104.5 kg
[2022-03-18 19:16] VITALS: BP 201/110
[2022-03-18] MEDS ORDERED: CARVedilol 6.25 MG TAB PO ONE (20:00)
[2022-03-18] MEDS ORDERED: CORE6.25 PO (20:58)
[2022-03-18] MEDS ORDERED: AMLO1TAB25 PO (20:58)
[2022-03-18 21:00] VITALS: BP 156/78
== END 2022-03-18 22:06 | disposition home or self-care (01) ==
LOC: M ED 18:21
DX: I10 Essential (primary) hypertension (principal); R51.9 Headache, unspecified; J45.909 Unspecified asthma, uncomplicated; F41.9 Anxiety disorder, unspecified; F33.1 Major depressive disorder, recurrent, moderate; Z91.040 Latex allergy status; Z79.51 Long term (current) use of inhaled steroids; Z79.811 Long term (current) use of aromatase inhibitors; Z79.891 Long term (current) use of opiate analgesic; Z79.899 Other long term (current) drug therapy

== ENCOUNTER 2022-08-13 17:58 | Emergency (ER) | payer OTHER ==
[~2022-08-13] VITALS: Ht 162.6 cm; Wt 104.9 kg
[2022-08-13] MEDS: METOPROLOL 5 MG/5 ML VIAL IV PRN ×3 (19:59→20:11)
[2022-08-13 20:18] LABS: BASO % 0.3 % (0.0-1.0); EOS # 0.2 10^3/uL (0.0-0.5); EOS % 1.4 % (0.0-3.0); HEMATOCRIT 52.1 % (36.0-47.0); HEMOGLOBIN 17.7 g/dl (12.0-15.5); LYMPH # 4.9 10^3/uL (1.5-5.0); LYMPH % 34.9 % (24.0-44.0); MEAN CORPUSCULAR HEMOGLOBIN 30.2 pg (27.0-33.0); MEAN CORPUSCULAR VOLUME 88.9 fl (80.0-96.0); MONO # 1.1 10^3/uL (0.0-0.8); MONO % 7.6 % (2.0-8.0); NEUTROPHILS # 7.8 10^3/uL (1.5-8.5); NEUTROPHILS % 55.4 % (36.0-66.0); PLATELET COUNT, AUTOMATED 272 10^3/uL (150-450); RED BLOOD COUNT 5.86 10^6/uL (4.00-5.40); WHITE BLOOD COUNT 14.1 10^3/uL (4.0-10.0)
[2022-08-13 20:25] LABS: BLOOD UREA NITROGEN 9 MG/DL (9-23); CALCIUM LEVEL 9.5 MG/DL (8.5-10.1); CARBON DIOXIDE LEVEL 27 MMOL/L (20-31); CHLORIDE LEVEL 105 MMOL/L (98-107); CPK CREATINE PHOSPHOKINASE 162 U/L (34-145); CREATININE FOR GFR 0.91 MG/DL (0.55-1.30); GLOMERULAR FILTRATION RATE > 60.0 (>58); GLUCOSE, FASTING 83 MG/DL (60-100); SODIUM LEVEL 139 MMOL/L (136-145)
[2022-08-13] MEDS ORDERED: NS 1,000 ML IV SCH (20:45)
[2022-08-13 21:49] LABS: CK-MB VALUE MASS 2.8 NG/ML (<3.6); MB/CK RELATIVE INDEX 1.72 (< OR =4)
[2022-08-13 21:53] LABS: THYROID STIMULATING HORMONE 3.219 uIU/ML (0.55-4.78)
[2022-08-13 22:04] VITALS: TEMP 98
[2022-08-13] MEDS ORDERED: CARVedilol 6.25 MG TAB PO ONE (22:40)
[2022-08-13] MEDS ORDERED: hydrALAZINE 20MG/ML 1ML VIAL IV ONE (23:15)
[2022-08-13] MEDS ORDERED: LevoFLOXacin 750 MG TABLET PO ONE (23:15)
[2022-08-13] MEDS ORDERED: FUROSEMIDE 20MG/2ML VIAL IV ONE (23:15)
[2022-08-13 23:29] VITALS: BP 179/79
[2022-08-14] VITALS: BP 185/98; O2SAT 92
[2022-08-14] MEDS ORDERED: LEVO1TAB40 PO (00:04)
[2022-08-14] MEDS ORDERED: FURO20TA2 PO (00:04)
[2022-08-14] MEDS ORDERED: CORE6.25 PO (00:04)
[2022-08-14] MEDS ORDERED: AMLO1TAB25 PO (00:04)
[2022-08-14 01:05] LABS: CK-MB VALUE MASS 2.7 NG/ML (<3.6); MB/CK RELATIVE INDEX 1.73 (< OR =4)
== END 2022-08-14 00:20 | disposition home or self-care (01) ==
LOC: M ED 17:58
DX: R07.9 Chest pain, unspecified (principal); I10 Essential (primary) hypertension; J18.9 Pneumonia, unspecified organism; R00.0 Tachycardia, unspecified; I44.4 Left anterior fascicular block; I51.7 Cardiomegaly; I25.2 Old myocardial infarction; G43.909 Migraine, unspecified, not intractable, without status migrainosus; J45.909 Unspecified asthma, uncomplicated; F41.9 Anxiety disorder, unspecified; F17.200 Nicotine dependence, unspecified, uncomplicated; Z91.040 Latex allergy status; Z79.52 Long term (current) use of systemic steroids; Z79.891 Long term (current) use of opiate analgesic; Z79.899 Other long term (current) drug therapy
CPT/HCPCS: 71046; 80048; 82550; 82553; 83880; 84443; 85025; 93005; 93041; 94760; 96374; 99285; J1940

== ENCOUNTER → 2022-10-18 | Outpatient (REF) | payer OTHER ==
[~2022-10-18] MED LIST changes: +FURO20TA2 PO; +LEVO1TAB40 PO
[2022-10-18 16:57] LABS: ALBUMIN 3.9 G/DL (3.2-5.2); ALKALINE PHOSPHATASE 83 U/L (46-116); ALT/SGPT 32 U/L (7.0-40); AST/SGOT 25 U/L (<34); BILIRUBIN,TOTAL 0.6 MG/DL (0.3-1.2); BLOOD UREA NITROGEN 12 MG/DL (9-23); CALCIUM LEVEL 10.1 MG/DL (8.5-10.1); CARBON DIOXIDE LEVEL 29 MMOL/L (20-31); CHLORIDE LEVEL 103 MMOL/L (98-107); CHOLESTEROL LEVEL 221 MG/DL (<200); CHOLESTEROL RISK RATIO 7.44 (<5); CREATININE FOR GFR 0.97 MG/DL (0.55-1.30); GLOMERULAR FILTRATION RATE > 60.0 (>58); GLUCOSE, FASTING 90 MG/DL (60-100); HDL CHOLESTEROL 29.7 MG/DL (>40); LDL CHOLESTEROL 124.9 MG/DL (<100); NON-HDL-C 191.3 MG/DL; POTASSIUM SERUM 4.7 MMOL/L (3.5-5.1); SODIUM LEVEL 138 MMOL/L (136-145); THYROID STIMULATING HORMONE 2.535 uIU/ML (0.55-4.78); TOTAL PROTEIN 7.3 G/DL (5.7-8.2); TRIGLYCERIDES LEVEL 332 MG/DL (<150)
[2022-10-18 17:10] LABS: HEMOGLOBIN A1c 6.5 % (4.0-6.0)
== END ==
LOC: M LAB REF 16:19
PROVIDERS: ATTEND Family Medicine Addiction Medicine
DX: R73.03 Prediabetes (principal)

== ENCOUNTER 2022-12-05 17:20 | Emergency (ER) | payer OTHER ==
[~2022-12-05] VITALS: Ht 152.4 cm; Wt 108.8 kg
[2022-12-05] MEDS ORDERED: ACET-683 PO (17:36)
[2022-12-05] MEDS ORDERED: LORA-1041 PO (17:36)
[2022-12-05 18:50] LABS: RSV AMPLIFICATION NEGATIVE (NEGATIVE)
[2022-12-05] MEDS ORDERED: VENTAER INH (19:57)
[2022-12-05] MEDS ORDERED: BENZ200C70 PO (19:57)
[2022-12-05 20:04] VITALS: BP 143/88; TEMP 97.9; O2SAT 94
== END 2022-12-05 20:05 | disposition home or self-care (01) ==
LOC: M ED 17:20
DX: J06.9 Acute upper respiratory infection, unspecified (principal); I10 Essential (primary) hypertension; G43.909 Migraine, unspecified, not intractable, without status migrainosus; J45.909 Unspecified asthma, uncomplicated; K76.0 Fatty (change of) liver, not elsewhere classified; Z91.040 Latex allergy status; Z79.52 Long term (current) use of systemic steroids; Z79.891 Long term (current) use of opiate analgesic; Z79.899 Other long term (current) drug therapy

== ENCOUNTER 2023-02-04 16:05 | Emergency (ER) | payer OTHER ==
[~2023-02-04] VITALS: Ht 152.4 cm; Wt 102.0 kg
[~2023-02-04 16:05] MED LIST changes: +ACET-683 PO; +BENZ200C70 PO; +LORA-1041 PO
[2023-02-04 17:10] LABS: BASO % 0.2 % (0.0-1.0); EOS # 0.3 10^3/uL (0.0-0.5); EOS % 2.1 % (0.0-3.0); HEMOGLOBIN 17.7 g/dl (12.0-15.5); LYMPH % 32.7 % (24.0-44.0); MEAN CORPUSCULAR HEMOGLOBIN 30.5 pg (27.0-33.0); MEAN CORPUSCULAR HGB CONC 34.7 g/dl (32.0-36.5); MEAN CORPUSCULAR VOLUME 87.8 fl (80.0-96.0); MONO # 0.8 10^3/uL (0.0-0.8); MONO % 6.8 % (2.0-8.0); NEUTROPHILS # 7.1 10^3/uL (1.5-8.5); PLATELET COUNT, AUTOMATED 249 10^3/uL (150-450); RED BLOOD COUNT 5.81 10^6/uL (4.00-5.40); WHITE BLOOD COUNT 12.3 10^3/uL (4.0-10.0)
[2023-02-04 17:37] LABS: LIPASE 24 U/L (12-53)
[2023-02-04 17:38] LABS: HCG, SERUM QUALITATIVE NEGATIVE (NEGATIVE)
[2023-02-04 17:40] LABS: ALBUMIN 3.7 G/DL (3.2-5.2); ALKALINE PHOSPHATASE 81 U/L (46-116); ALT/SGPT 32 U/L (7.0-40); AST/SGOT 30 U/L (<34); BILIRUBIN,DIRECT 0.3 MG/DL (<0.4); BILIRUBIN,TOTAL 0.7 MG/DL (0.3-1.2); BLOOD UREA NITROGEN 8 MG/DL (9-23); CALCIUM LEVEL 9.7 MG/DL (8.5-10.1); CARBON DIOXIDE LEVEL 23 MMOL/L (20-31); CHLORIDE LEVEL 107 MMOL/L (98-107); CREATININE FOR GFR 0.82 MG/DL (0.55-1.30); GLOMERULAR FILTRATION RATE > 60.0 (>58); GLUCOSE, FASTING 104 MG/DL (60-100); SODIUM LEVEL 140 MMOL/L (136-145); TOTAL PROTEIN 7.2 G/DL (5.7-8.2)
[2023-02-04] MEDS ORDERED: ONDANSETRON 4MG 2ML VIAL IV ONE (20:35)
[2023-02-04] MEDS ORDERED: NS 1,000 ML IV ONE (20:35)
[2023-02-04] MEDS ORDERED: MORPHINE 4 MG/ML 1ML VIAL IV ONE (20:35)
[2023-02-04 22:25] VITALS: BP 139/81; TEMP 97.3; O2SAT 95
[2023-02-04] MEDS ORDERED: ISOVUE-370 76% 100ML VIAL As Ordered ONE (22:51)
[2023-02-05] MEDS ORDERED: ONDA4TAB6 PO
[2023-02-05] MEDS ORDERED: ONDANSETRON 4MG 2ML VIAL IV ONE
[2023-02-05] MEDS ORDERED: PEPC1TAB5 PO
[2023-02-05] MEDS ORDERED: KETOROLAC 30 MG/ML 1ML VIAL IV ONE (01:00)
== END 2023-02-05 00:51 | disposition home or self-care (01) ==
LOC: M ED 16:05
DX: K52.9 Noninfective gastroenteritis and colitis, unspecified (principal); I10 Essential (primary) hypertension; F32.A Depression, unspecified; F41.9 Anxiety disorder, unspecified; F17.200 Nicotine dependence, unspecified, uncomplicated; Z91.040 Latex allergy status; Z79.899 Other long term (current) drug therapy
CPT/HCPCS: 74177; 76705; 80048; 80076; 81001; 83690; 84703; 85025; 87507; 96361; 96374; 96375; 96376; 99284; J1885; J2405; Q9967

== ENCOUNTER 2023-09-26 17:24 | Emergency (ER) | payer OTHER ==
[~2023-09-26] VITALS: Ht 152.4 cm; Wt 103.2 kg
[~2023-09-26 17:24] MED LIST changes: -ALBU90AE IH; +ALBU90AE2 IH; +ONDA-282 PO; +PEPC1TAB5 PO
[2023-09-26 18:44] LABS: HEMATOCRIT 50.1 % (36.0-47.0); HEMOGLOBIN 17.3 g/dl (12.0-15.5); MEAN CORPUSCULAR HEMOGLOBIN 30.9 pg (27.0-33.0); MEAN CORPUSCULAR HGB CONC 34.5 g/dl (32.0-36.5); MEAN CORPUSCULAR VOLUME 89.5 fl (80.0-96.0); PLATELET COUNT, AUTOMATED 243 10^3/uL (150-450); WHITE BLOOD COUNT 14.3 10^3/uL (4.0-10.0)
[2023-09-26 19:01] LABS: PROTHROMBIN TIME 12.9 SECONDS (12.5-14.5)
[2023-09-26 19:08] LABS: CK-MB VALUE MASS 4.6 NG/ML (<3.6); LIPASE 22 U/L (12-53)
[2023-09-26 19:11] LABS: ALBUMIN 3.7 G/DL (3.2-5.2); ALKALINE PHOSPHATASE 84 U/L (46-116); ALT/SGPT 20 U/L (7.0-40); AST/SGOT 19 U/L (<34); BILIRUBIN,DIRECT 0.2 MG/DL (<0.4); BILIRUBIN,TOTAL 0.9 MG/DL (0.3-1.2); BLOOD UREA NITROGEN 11 MG/DL (9-23); CALCIUM LEVEL 9.4 MG/DL (8.5-10.1); CARBON DIOXIDE LEVEL 27 MMOL/L (20-31); CHLORIDE LEVEL 106 MMOL/L (98-107); CREATININE FOR GFR 0.93 MG/DL (0.55-1.30); GLOMERULAR FILTRATION RATE > 60.0 (>58); GLUCOSE, FASTING 103 MG/DL (60-100); POTASSIUM SERUM 3.9 MMOL/L (3.5-5.1); SODIUM LEVEL 139 MMOL/L (136-145); TOTAL PROTEIN 6.8 G/DL (5.7-8.2)
[2023-09-26 19:17] LABS: CPK CREATINE PHOSPHOKINASE 142 U/L (34-145); MB/CK RELATIVE INDEX 3.23 (< OR =4)
[2023-09-26 19:29] LABS: ATYPICAL LYMPH 13 % (0-5); EOSINOPHILS 1 % (0-3); LYMPHOCYTES 13 % (16-44); MONOCYTES 6 % (0-5); NEUTROPHILS 67 % (28-66); PLATELET ESTIMATE NORMAL (NORMAL)
[2023-09-26] MEDS: LABETALOL 100MG/20ML VIAL IV STA (19:44)
[2023-09-26] MEDS ORDERED: ISOVUE-370 76% 100ML VIAL As Ordered ONE (19:53)
[2023-09-26] MEDS: NITROGLYCERIN 0.4MG SUBL TABLET SL PRN (19:59)
[2023-09-26] MEDS: ASPIRIN 81MG CHEW TABLET PO ONE (20:00)
[2023-09-26 20:41] LABS: CK-MB VALUE MASS 4.4 NG/ML (<3.6)
[2023-09-26 20:45] LABS: MB/CK RELATIVE INDEX 3.21 (< OR =4)
[2023-09-26] MEDS: ATORVASTATIN 20 MG TAB PO ONE (22:45)
[2023-09-26 22:46] VITALS: BP 189/109
[2023-09-26] MEDS: CARVedilol 6.25 MG TAB PO ONE (22:46)
[2023-09-26] MEDS: HEPARIN SOD (PORCINE) 5000UNITS/ML 1ML VIAL/SYRINGE IV ONE (23:09)
[2023-09-26] MEDS: HEPARIN DRIP 25,000 UNITS in IV 1 EA IV SCH (23:10)
[2023-09-26] MEDS: CLOPIDOGREL 300 MG TAB (PLAVIX) PO ONE (23:12)
[2023-09-26] MEDS ORDERED: ALBU8.5H INH (23:39)
[2023-09-26] MEDS ORDERED: CARV6.25 PO (23:39)
[2023-09-26] MEDS ORDERED: IBUP1TAB7 PO (23:39)
[2023-09-26] MEDS ORDERED: CYCL10TA20 PO (23:39)
[2023-09-26] MEDS ORDERED: HOME MED LIST COMPLETE! XX SCH (23:45)
[2023-09-26] MEDS ORDERED: HEPARIN SOD (PORCINE) 5000UNITS/ML 1ML VIAL/SYRINGE IV PRN (23:55)
[2023-09-27] MEDS: HEPARIN DRIP 25,000 UNITS in IV 1 EA IV SCH (00:09)
[2023-09-27 01:30] VITALS: BP 176/91
[2023-09-27 01:31] VITALS: TEMP 97.5; O2SAT 92
== END 2023-09-27 01:44 | disposition short-term general hospital (02) ==
LOC: M ED 17:24
DX: I25.10 Atherosclerotic heart disease of native coronary artery without angina pectoris (principal); I16.0 Hypertensive urgency; K80.80 Other cholelithiasis without obstruction; R16.0 Hepatomegaly, not elsewhere classified; I45.81 Long QT syndrome; I10 Essential (primary) hypertension; E78.5 Hyperlipidemia, unspecified; J45.909 Unspecified asthma, uncomplicated; F17.200 Nicotine dependence, unspecified, uncomplicated; E66.9 Obesity, unspecified; Z91.040 Latex allergy status; Z79.52 Long term (current) use of systemic steroids; Z79.899 Other long term (current) drug therapy
CPT/HCPCS: 36415; 71275; 80047; 80048; 80076; 82550; 82553; 83690; 84484; 85025; 85610; 85730; 93005; 93041; 94760; 96365; 96366; 96375; 99285; J1920; Q9967

== ENCOUNTER 2024-08-28 02:27 | Inpatient (IN) | payer MEDICAID, OTHER ==
[~2024-08-28] VITALS: Ht 152.4 cm; Wt 101.9 kg
[2024-08-28] VITALS (13 sets, daily range): BP systolic 148–188; BP diastolic 68–102; TEMP 98–98.6; O2SAT 92–97
[~2024-08-28 02:27] MED LIST changes: +ALBU8.5H INH; +CARV6.25 PO; +CYCL10TA20 PO; -CYCL5TAB PO; +CYCL5TAB4 PO; +GABA-1172 PO; -GABA-282 PO; +IBUP1TAB7 PO
[2024-08-28] MEDS ORDERED: LEVALBUTEROL 1.25 MG 0.5ML CONCENTRATE NEB NEB PRN (02:30)
[2024-08-28] MEDS: MAG SULF 1GM/100ML (MAG RUN) 1 GM in IV 1 EA IV SCH ×2 (02:46→09:22)
[2024-08-28 02:48] LABS: VENOUS BASE EXCESS -5.4 (-2.0-2.0); VENOUS HCO3 22.1 MMOL/L (23.0-27.0); VENOUS O2 SATURATION 94.1 % (60.0-80.0); VENOUS PARTIAL PRESSURE CO2 49.9 mmHg (38.0-50.0); VENOUS PARTIAL PRESSURE O2 77.3 mmHg (30.0-50.0); VENOUS PH 7.265 UNITS (7.330-7.430); VENOUS STANDARD HCO3 20.0 MMOL/L; VENOUS TOTAL CO2 23.7 MMOL/L (24.0-28.0)
[2024-08-28] MEDS: LEVALBUTEROL 1.25 MG 0.5ML CONCENTRATE NEB NEB ONE ×3 (02:48→02:49)
[2024-08-28 02:52] LABS: BASO # 0.1 10^3/uL (0.0-0.2); BASO % 0.4 % (0.0-1.0); EOS # 0.2 10^3/uL (0.0-0.5); EOS % 1.0 % (0.0-3.0); LYMPH # 5.8 10^3/uL (1.5-5.0); LYMPH % 31.1 % (24.0-44.0); MONO # 0.9 10^3/uL (0.0-0.8); MONO % 4.7 % (2.0-8.0); NEUTROPHILS # 11.7 10^3/uL (1.5-8.5); NEUTROPHILS % 62.3 % (36.0-66.0); PLATELET COUNT, AUTOMATED 265 10^3/uL (150-450)
[2024-08-28] MEDS: NITROGLYCERIN 2% OINT 1 GM *U/D* PKT TOP ONE (03:02)
[2024-08-28 03:19] LABS: ABG BASE EXCESS -3.9 (-2.0-2.0); ABG HCO3 22.8 MMOL/L (22.0-26.0); ABG O2 SATURATION 95.1 % (95.0-99.0); ABG PARTIAL PRESSURE CO2 47.0 mmHg (35.0-45.0); ABG PARTIAL PRESSURE O2 82.8 mmHg (75.0-100.0); ABG STANDARD HCO3 21.2 MMOL/L. (22.0-26.0); ABG TOTAL CO2 24.3 MMOL/L (22.0-29.0); ABG pH (ARTERIAL) 7.304 UNITS (7.350-7.450)
[2024-08-28 03:30] LABS: ALT/SGPT 34.0 U/L (7.0-40); AST/SGOT 42.0 U/L (<34); CALCIUM LEVEL 9.0 MG/DL (8.5-10.1); CARBON DIOXIDE LEVEL 24.0 MMOL/L (20-31); CHLORIDE LEVEL 103.0 MMOL/L (98-107); CK-MB VALUE MASS 5.8 NG/ML (<3.6); CPK CREATINE PHOSPHOKINASE 159.0 U/L (34-145); CREATININE FOR GFR 1.25 MG/DL (0.55-1.30); GLOMERULAR FILTRATION RATE 53.2 (>58); MB/CK RELATIVE INDEX 3.64 (< OR =4); POTASSIUM SERUM 3.7 MMOL/L (3.5-5.1); SODIUM LEVEL 140.0 MMOL/L (136-145)
[2024-08-28] MEDS ORDERED: ISOVUE-370 76% 100 ML VIAL As Ordered ONE (06:42)
[2024-08-28 07:06] LABS: INR 0.94
[2024-08-28 08:03] LABS: ABG BASE EXCESS -3.2 (-2.0-2.0); ABG HCO3 22.6 MMOL/L (22.0-26.0); ABG O2 SATURATION 94.1 % (95.0-99.0); ABG PARTIAL PRESSURE CO2 43.4 mmHg (35.0-45.0); ABG PARTIAL PRESSURE O2 73.7 mmHg (75.0-100.0); ABG STANDARD HCO3 21.7 MMOL/L. (22.0-26.0); ABG TOTAL CO2 24.0 MMOL/L (22.0-29.0); ABG pH (ARTERIAL) 7.335 UNITS (7.350-7.450)
[2024-08-28] MEDS: cefTRIAXone SOD 2 GM in DEXTROSE 5% (D5W) ADV/MINI-BAG 50 ML IV ONE (09:22)
[2024-08-28] MEDS ORDERED: LISI10TA22 PO (09:42)
[2024-08-28] MEDS ORDERED: ATOR80TA59 PO (09:44)
[2024-08-28] MEDS ORDERED: AMLO-751 PO (09:44)
[2024-08-28] MEDS ORDERED: FENO54TA2 PO (09:44)
[2024-08-28] MEDS ORDERED: ASPI81TA26 PO (09:44)
[2024-08-28] MEDS ORDERED: HOME MED LIST COMPLETE! XX SCH (09:45)
[2024-08-28] MEDS: AZITHROMYCIN INJ 500 MG, VIAL MATE ADAPTER 1 EACH in NS 250 ML IV SCH (10:03)
[2024-08-28] MEDS: ENOXAPARIN 40 MG/0.4 ML SYRINGE (J1650 PER 10MG) SC SCH (10:03)
[2024-08-28] MEDS: PANTOPRAZOLE 40MG VIAL IV SCH (10:04)
[2024-08-28] MEDS: IPRATROPIUM 0.5 MG/ALBUTEROL 2.5 MG INH SOL UD 3 ML NEB SCH (11:45)
[2024-08-28] MEDS: ASPIRIN 325 MG TAB PO SCH (12:07)
[2024-08-28 14:17] LABS: ABG BASE EXCESS -3.5 (-2.0-2.0); ABG HCO3 20.8 MMOL/L (22.0-26.0); ABG O2 SATURATION 97.1 % (95.0-99.0); ABG PARTIAL PRESSURE CO2 35.8 mmHg (35.0-45.0); ABG PARTIAL PRESSURE O2 90.7 mmHg (75.0-100.0); ABG STANDARD HCO3 21.6 MMOL/L. (22.0-26.0); ABG TOTAL CO2 21.8 MMOL/L (22.0-29.0); ABG pH (ARTERIAL) 7.381 UNITS (7.350-7.450)
[2024-08-28 15:11] LABS: CK-MB VALUE MASS 7.4 NG/ML (<3.6)
[2024-08-28 15:14] LABS: CPK CREATINE PHOSPHOKINASE 164.0 U/L (34-145); MB/CK RELATIVE INDEX 4.51 (< OR =4)
[2024-08-28] MEDS: ACETAMINOPHEN *IV* 1,000 MG in IV 1 EA IV ONE (15:27)
[2024-08-28] MEDS: amLODIPine 10 MG TAB PO SCH (15:27)
[2024-08-28] MEDS: NYSTATIN 100,000 UNITS/GM TOPICAL PWD 15GM TOP PRN (17:08)
[2024-08-29] VITALS (7 sets, daily range): BP systolic 140–155; BP diastolic 69–85; TEMP 97.7–99; O2SAT 90–95
[2024-08-29 05:09] LABS: BASO # 0.0 10^3/uL (0.0-0.2); BASO % 0.2 % (0.0-1.0); EOS # 0.0 10^3/uL (0.0-0.5); EOS % 0.1 % (0.0-3.0); LYMPH # 1.9 10^3/uL (1.5-5.0); LYMPH % 11.2 % (24.0-44.0); MONO # 0.5 10^3/uL (0.0-0.8); MONO % 2.8 % (2.0-8.0); NEUTROPHILS # 14.1 10^3/uL (1.5-8.5); NEUTROPHILS % 85.2 % (36.0-66.0); PLATELET COUNT, AUTOMATED 253 10^3/uL (150-450)
[2024-08-29] MEDS ORDERED: ALBUTEROL SULFATE 2.5 MG/0.5 ML INH CONCENTRATE NEB SOLN NEB PRN (07:25)
[2024-08-29 07:39] LABS: ALT/SGPT 27.0 U/L (7.0-40); AST/SGOT 25.0 U/L (<34); CALCIUM LEVEL 9.2 MG/DL (8.5-10.1); CARBON DIOXIDE LEVEL 24.0 MMOL/L (20-31); CHLORIDE LEVEL 107.0 MMOL/L (98-107); CK-MB VALUE MASS 6.0 NG/ML (<3.6); CPK CREATINE PHOSPHOKINASE 135.0 U/L (34-145); CREATININE FOR GFR 1.16 MG/DL (0.55-1.30); GLOMERULAR FILTRATION RATE 58.2 (>58); MAGNESIUM LEVEL 2.3 MG/DL (1.8-2.4); MB/CK RELATIVE INDEX 4.44 (< OR =4); POTASSIUM SERUM 4.2 MMOL/L (3.5-5.1); SODIUM LEVEL 139.0 MMOL/L (136-145)
[2024-08-29] MEDS: cefTRIAXone SOD 1 GM in DEXTROSE 5% (D5W) ADV/MINI-BAG 50 ML IV SCH (09:28)
[2024-08-30 03:20] VITALS: BP 150/80; TEMP 97.9; O2SAT 97
[2024-08-30 09:34] VITALS: BP 162/84
[2024-08-30] MEDS: predniSONE 20 MG TAB PO SCH (09:46)
[2024-08-30 11:58] VITALS: BP 148/78; TEMP 98.4; O2SAT 93
[2024-08-30] MEDS ORDERED: PRED20TA PO (15:00)
[2024-08-30] MEDS ORDERED: LISI20TA33 PO (15:00)
[2024-08-30] MEDS ORDERED: SYMB80INH INH ×2 (15:00→15:01)
[2024-08-30] MEDS ORDERED: CEFD300CAP PO (15:01)
== END 2024-08-30 16:47 | disposition home or self-care (01) | DRG 141 ==
LOC: M ED 02:27 → M ED INP 09:24 → M ICU 10:32 → M MSPAV 08-29 11:46
PROVIDERS: ADMIT Internal Medicine Critical Care Medicine; ATTEND Student in an Organized Health Care Education/Training Program
DX: J45.901 Unspecified asthma with (acute) exacerbation (principal); I21.A1 Myocardial infarction type 2; J96.01 Acute respiratory failure with hypoxia; F17.200 Nicotine dependence, unspecified, uncomplicated; I10 Essential (primary) hypertension; E78.5 Hyperlipidemia, unspecified; G43.909 Migraine, unspecified, not intractable, without status migrainosus; F41.9 Anxiety disorder, unspecified; Z79.82 Long term (current) use of aspirin; Z79.899 Other long term (current) drug therapy

== ENCOUNTER 2024-12-10 00:49 | Inpatient (IN) | payer MEDICAID, OTHER ==
[~2024-12-10] VITALS: Ht 167.6 cm; Wt 107.1 kg
[~2024-12-10 00:49] MED LIST changes: +AMLO-751 PO; +ASPI81TA26 PO; +ATOR80TA59 PO; +CEFD300CAP PO; +FENO54TA2 PO; -IBUP-1022 PO; +IBUP600T42 PO; +LISI10TA22 PO; +LISI20TA33 PO; +SYMB80INH INH
[2024-12-10] MEDS: EPINEPHrine INJ 1 MG/ML 1ML AMP IM STA (00:59)
[2024-12-10] MEDS: MAG SULF 1GM/100ML (MAG RUN) 1 GM in IV 1 EA IV SCH (01:02)
[2024-12-10] MEDS: ALBUTEROL SULFATE 2.5 MG/0.5 ML INH CONCENTRATE NEB SOLN INH SCH (01:15)
[2024-12-10 01:22] LABS: BASO # 0.1 10^3/uL (0.0-0.2); BASO % 0.5 % (0.0-1.0); EOS # 0.3 10^3/uL (0.0-0.5); EOS % 1.0 % (0.0-3.0); LYMPH # 7.2 10^3/uL (1.5-5.0); LYMPH % 28.5 % (24.0-44.0); MONO # 1.3 10^3/uL (0.0-0.8); MONO % 5.2 % (2.0-8.0); NEUTROPHILS # 16.1 10^3/uL (1.5-8.5); NEUTROPHILS % 64.1 % (36.0-66.0); PLATELET COUNT, AUTOMATED 300 10^3/uL (150-450)
[2024-12-10 01:22] LABS: ABG BASE EXCESS -4.0 (-2.0-2.0); ABG HCO3 24.7 MMOL/L (22.0-26.0); ABG O2 SATURATION 98.8 % (95.0-99.0); ABG PARTIAL PRESSURE CO2 57.5 mmHg (35.0-45.0); ABG PARTIAL PRESSURE O2 171.7 mmHg (75.0-100.0); ABG STANDARD HCO3 21.3 MMOL/L. (22.0-26.0); ABG TOTAL CO2 26.5 MMOL/L (22.0-29.0); ABG pH (ARTERIAL) 7.251 UNITS (7.350-7.450)
[2024-12-10 01:47] LABS: ALT/SGPT 37.0 U/L (7.0-40); AST/SGOT 52.0 U/L (<34); CALCIUM LEVEL 9.0 MG/DL (8.5-10.1); CARBON DIOXIDE LEVEL 25.0 MMOL/L (20-31); CHLORIDE LEVEL 102.0 MMOL/L (98-107); CREATININE FOR GFR 1.08 MG/DL (0.55-1.30); GLOMERULAR FILTRATION RATE 63.4 (>58); POTASSIUM SERUM 4.1 MMOL/L (3.5-5.1); SODIUM LEVEL 140.0 MMOL/L (136-145)
[2024-12-10] MEDS: LR 1,000 ML IV ONE (02:20)
[2024-12-10] MEDS: cefTRIAXone SOD 1 GM in DEXTROSE 5% (D5W) ADV/MINI-BAG 50 ML IV ONE (04:37)
[2024-12-10] MEDS: AZITHROMYCIN INJ 500 MG, VIAL MATE ADAPTER 1 EACH in NS 250 ML IV ONE (04:37)
[2024-12-10] MEDS ORDERED: MAALOX 30 ML SUSP *UDC PO PRN (05:10)
[2024-12-10] MEDS ORDERED: MOM 30 ML SUSPENSION UDC PO PRN (05:10)
[2024-12-10] MEDS ORDERED: ALBUTEROL SULFATE 2.5 MG/0.5 ML INH CONCENTRATE NEB SOLN NEB PRN (05:15)
[2024-12-10] MEDS ORDERED: NICOTINE 14 MG/24 HR TRANSDERMAL TD PRN (05:25)
[2024-12-10] MEDS: LR 1,000 ML IV SCH (06:20)
[2024-12-10] MEDS: IPRATROPIUM 0.5 MG/ALBUTEROL 2.5 MG INH SOL UD 3 ML NEB SCH (06:20)
[2024-12-10] MEDS ORDERED: GLUCAGON INJ 1 MG VIAL SC PRN (07:45)
[2024-12-10] MEDS ORDERED: GLUCOSE 4 GM CHEW PO PRN (07:45)
[2024-12-10] MEDS ORDERED: DEXTROSE 50% 50 ML SYRINGE IV PRN (07:45)
[2024-12-10] MEDS: BUDESONIDE 0.5 MG/2 ML INHALATION SUSPENSION NEB SCH (07:48)
[2024-12-10] MEDS: PANTOPRAZOLE 40MG VIAL IV SCH (07:58)
[2024-12-10] MEDS: guaiFENesin ER TABLET 600 MG TAB PO SCH (07:59)
[2024-12-10] MEDS: DOCUSATE SODIUM 100 MG CAPSULE PO SCH (07:59)
[2024-12-10] MEDS: HEPARIN SOD 5000 UNITS/ML 1 ML VIAL/SYRINGE SC SCH (08:00)
[2024-12-10] MEDS ORDERED: SODIUM CHLORIDE HYPERTONIC 3% 4ML NEB SOL INH SCH (08:00)
[2024-12-10 08:45] LABS: VENOUS BASE EXCESS -2.2 (-2.0-2.0); VENOUS HCO3 22.4 MMOL/L (23.0-27.0); VENOUS O2 SATURATION 95.4 % (60.0-80.0); VENOUS PARTIAL PRESSURE CO2 38.7 mmHg (38.0-50.0); VENOUS PARTIAL PRESSURE O2 80.1 mmHg (30.0-50.0); VENOUS PH 7.381 UNITS (7.330-7.430); VENOUS STANDARD HCO3 22.6 MMOL/L; VENOUS TOTAL CO2 23.6 MMOL/L (24.0-28.0)
[2024-12-10 09:06] VITALS: BP 182/93; TEMP 98.3; O2SAT 92
[2024-12-10 09:28] LABS: ESTIMATED AVERAGE GLUCOSE 148.0 MG/DL (60-110)
[2024-12-10 09:48] VITALS: BP 170/81; O2SAT 95
[2024-12-10] MEDS: amLODIPine 10 MG TAB PO ONE (10:27)
[2024-12-10 11:16] VITALS: O2SAT 98
[2024-12-10] MEDS ORDERED: SYMB80INH INH (11:30)
[2024-12-10] MEDS ORDERED: LISI20TA33 PO (11:32)
[2024-12-10] MEDS ORDERED: VENTAER INH (11:33)
[2024-12-10] MEDS ORDERED: HOME MED LIST COMPLETE! XX SCH (11:35)
[2024-12-10 12:00] VITALS: BP 172/81; TEMP 98; O2SAT 93
[2024-12-10] MEDS: INSULIN LISPRO (NovoLOG) PER UNIT SC SCH ×2 (13:21→20:15)
[2024-12-10 13:32] LABS: CALCIUM LEVEL 8.8 MG/DL (8.5-10.1); CARBON DIOXIDE LEVEL 22.0 MMOL/L (20-31); CHLORIDE LEVEL 107.0 MMOL/L (98-107); CREATININE FOR GFR 1.35 MG/DL (0.55-1.30); GLOMERULAR FILTRATION RATE 48.5 (>58); MAGNESIUM LEVEL 1.9 MG/DL (1.8-2.4); POTASSIUM SERUM 3.9 MMOL/L (3.5-5.1); SODIUM LEVEL 140.0 MMOL/L (136-145)
[2024-12-10 15:37] VITALS: BP 153/68; TEMP 98.7; O2SAT 92
[2024-12-10 20:00] VITALS: BP 156/71; TEMP 97.6; O2SAT 94
[2024-12-11] VITALS: BP 170/77; TEMP 98; O2SAT 94
[2024-12-11 04:00] VITALS: BP 164/84; TEMP 97.7; O2SAT 95
[2024-12-11] MEDS: cefTRIAXone SOD 1 GM in DEXTROSE 5% (D5W) ADV/MINI-BAG 50 ML IV SCH (04:35)
[2024-12-11 04:37] LABS: BASO # 0.0 10^3/uL (0.0-0.2); BASO % 0.1 % (0.0-1.0); EOS # 0.0 10^3/uL (0.0-0.5); EOS % 0.0 % (0.0-3.0); LYMPH # 2.0 10^3/uL (1.5-5.0); LYMPH % 10.5 % (24.0-44.0); MONO # 0.6 10^3/uL (0.0-0.8); MONO % 3.3 % (2.0-8.0); NEUTROPHILS # 16.0 10^3/uL (1.5-8.5); NEUTROPHILS % 85.5 % (36.0-66.0); PLATELET COUNT, AUTOMATED 241 10^3/uL (150-450)
[2024-12-11 04:56] LABS: ALT/SGPT 26.0 U/L (7.0-40); AST/SGOT 24.0 U/L (<34); CALCIUM LEVEL 9.3 MG/DL (8.5-10.1); CARBON DIOXIDE LEVEL 23.0 MMOL/L (20-31); CHLORIDE LEVEL 106.0 MMOL/L (98-107); CREATININE FOR GFR 1.4 MG/DL (0.55-1.30); GLOMERULAR FILTRATION RATE 46.4 (>58); MAGNESIUM LEVEL 1.9 MG/DL (1.8-2.4); POTASSIUM SERUM 4.3 MMOL/L (3.5-5.1); SODIUM LEVEL 141.0 MMOL/L (136-145)
[2024-12-11 07:35] VITALS: BP 151/91; TEMP 97.5; O2SAT 94
[2024-12-11] MEDS: amLODIPine 10 MG TAB PO SCH (07:41)
[2024-12-11] MEDS: ATORVASTATIN 20 MG TAB PO SCH (07:41)
[2024-12-11] MEDS: AZITHROMYCIN 250 MG TABLET PO SCH (07:42)
[2024-12-11 10:50] VITALS: BP 145/73; TEMP 97.1; O2SAT 94
[2024-12-11] MEDS ORDERED: ALPRAZolam 0.5 MG TAB PO PRN (14:00)
[2024-12-11] MEDS: SYMBICORT 80/4.5MCG INHALER 6GM INH SCH (19:39)
[2024-12-11 19:49] VITALS: BP 132/72; TEMP 97.8; O2SAT 94
[2024-12-11] MEDS: NS (Normal Saline) 0.9% 1,000 ML IV SCH (20:44)
[2024-12-12] VITALS (18 sets, daily range): BP systolic 117–206; BP diastolic 64–114; TEMP 97.2–97.8; O2SAT 84–99
[2024-12-12] MEDS: IPRATROPIUM 0.5 MG/ALBUTEROL 2.5 MG INH SOL UD 3 ML NEB PRN ×2 (01:33→23:15)
[2024-12-12] MEDS: IPRATROPIUM 0.5 MG/ALBUTEROL 2.5 MG INH SOL UD 3 ML NEB ONE ×2 (04:30→05:40)
[2024-12-12] MEDS: LEVALBUTEROL 1.25 MG 0.5ML CONCENTRATE NEB NEB ONE (05:00)
[2024-12-12] MEDS: LABETALOL 100 MG/20 ML VIAL IV STA (05:50)
[2024-12-12] MEDS: MAG SULF 1GM/100ML (MAG RUN) 1 GM in IV 1 EA IV ONE (05:51)
[2024-12-12 06:20] LABS: ABG BASE EXCESS -6.1 (-2.0-2.0); ABG HCO3 22.2 MMOL/L (22.0-26.0); ABG O2 SATURATION 97.7 % (95.0-99.0); ABG PARTIAL PRESSURE CO2 54.0 mmHg (35.0-45.0); ABG PARTIAL PRESSURE O2 110.4 mmHg (75.0-100.0); ABG STANDARD HCO3 19.6 MMOL/L. (22.0-26.0); ABG TOTAL CO2 23.9 MMOL/L (22.0-29.0)
[2024-12-12 06:20] LABS: BASO # 0.0 10^3/uL (0.0-0.2); BASO % 0.2 % (0.0-1.0); EOS # 0.0 10^3/uL (0.0-0.5); EOS % 0.0 % (0.0-3.0); LYMPH # 2.0 10^3/uL (1.5-5.0); LYMPH % 9.2 % (24.0-44.0); MONO # 1.2 10^3/uL (0.0-0.8); MONO % 5.6 % (2.0-8.0); NEUTROPHILS # 17.8 10^3/uL (1.5-8.5); NEUTROPHILS % 84.2 % (36.0-66.0); PLATELET COUNT, AUTOMATED 277 10^3/uL (150-450)
[2024-12-12 06:24] LABS: ABG pH (ARTERIAL) 7.232 UNITS (7.350-7.450)
[2024-12-12 06:38] LABS: ALT/SGPT 58.0 U/L (7.0-40); AST/SGOT 58.0 U/L (<34); CALCIUM LEVEL 9.1 MG/DL (8.5-10.1); CARBON DIOXIDE LEVEL 22.0 MMOL/L (20-31); CHLORIDE LEVEL 111.0 MMOL/L (98-107); CREATININE FOR GFR 1.36 MG/DL (0.55-1.30); GLOMERULAR FILTRATION RATE 48.1 (>58); MAGNESIUM LEVEL 2.0 MG/DL (1.8-2.4); POTASSIUM SERUM 5.0 MMOL/L (3.5-5.1); SODIUM LEVEL 141.0 MMOL/L (136-145)
[2024-12-12] MEDS ORDERED: predniSONE 20 MG TAB PO SCH (09:00)
[2024-12-12] MEDS ORDERED: DEXTROSE 50% 50 ML SYRINGE IV PRN (09:05)
[2024-12-12] MEDS ORDERED: GLUCAGON INJ 1 MG VIAL SC PRN (09:05)
[2024-12-12] MEDS ORDERED: GLUCOSE 4 GM CHEW PO PRN (09:05)
[2024-12-12] MEDS: FUROSEMIDE 20 MG/2 ML VIAL IV ONE (10:06)
[2024-12-12] MEDS: INSULIN LISPRO (NovoLOG) PER UNIT SC SCH ×2 (11:58→20:14)
[2024-12-12 12:49] LABS: CALCIUM LEVEL 9.2 MG/DL (8.5-10.1); CARBON DIOXIDE LEVEL 26.0 MMOL/L (20-31); CHLORIDE LEVEL 108.0 MMOL/L (98-107); CREATININE FOR GFR 1.48 MG/DL (0.55-1.30); GLOMERULAR FILTRATION RATE 43.4 (>58); POTASSIUM SERUM 4.4 MMOL/L (3.5-5.1); SODIUM LEVEL 143.0 MMOL/L (136-145)
[2024-12-12 13:30] LABS: ABG BASE EXCESS -2.7 (-2.0-2.0); ABG HCO3 22.4 MMOL/L (22.0-26.0); ABG O2 SATURATION 94.1 % (95.0-99.0); ABG PARTIAL PRESSURE CO2 40.1 mmHg (35.0-45.0); ABG PARTIAL PRESSURE O2 68.3 mmHg (75.0-100.0); ABG STANDARD HCO3 22.2 MMOL/L. (22.0-26.0); ABG TOTAL CO2 23.6 MMOL/L (22.0-29.0); ABG pH (ARTERIAL) 7.365 UNITS (7.350-7.450)
[2024-12-12] MEDS: amLODIPine 5 MG TAB PO SCH (13:31)
[2024-12-12] MEDS: IPRATROPIUM 0.5 MG/ALBUTEROL 2.5 MG INH SOL UD 3 ML NEB SCH (14:25)
[2024-12-12] MEDS: amLODIPine 5 MG TAB PO ONE (18:40)
[2024-12-13] VITALS (7 sets, daily range): BP systolic 162–185; BP diastolic 75–92; TEMP 97.1–97.8; O2SAT 90–95
[2024-12-13 05:03] LABS: BASO # 0.0 10^3/uL (0.0-0.2); BASO % 0.2 % (0.0-1.0); EOS # 0.0 10^3/uL (0.0-0.5); EOS % 0.0 % (0.0-3.0); LYMPH # 1.7 10^3/uL (1.5-5.0); LYMPH % 13.1 % (24.0-44.0); MONO # 0.5 10^3/uL (0.0-0.8); MONO % 4.1 % (2.0-8.0); NEUTROPHILS # 10.4 10^3/uL (1.5-8.5); NEUTROPHILS % 81.1 % (36.0-66.0); PLATELET COUNT, AUTOMATED 228 10^3/uL (150-450)
[2024-12-13 05:25] LABS: ALT/SGPT 47.0 U/L (7.0-40); AST/SGOT 27.0 U/L (<34); CALCIUM LEVEL 9.4 MG/DL (8.5-10.1); CARBON DIOXIDE LEVEL 25.0 MMOL/L (20-31); CHLORIDE LEVEL 105.0 MMOL/L (98-107); CREATININE FOR GFR 1.24 MG/DL (0.55-1.30); GLOMERULAR FILTRATION RATE 53.7 (>58); MAGNESIUM LEVEL 1.9 MG/DL (1.8-2.4); POTASSIUM SERUM 4.2 MMOL/L (3.5-5.1); SODIUM LEVEL 140.0 MMOL/L (136-145)
[2024-12-13] MEDS: amLODIPine 10 MG TAB PO SCH (08:49)
[2024-12-13] MEDS: ASPIRIN 81 MG ENTERIC TABLET PO SCH (12:00)
[2024-12-13] MEDS: FENOFIBRATE 48 MG TABLET PO SCH (13:53)
[2024-12-13] MEDS: hydrALAZINE 20 MG/ML 1 ML VIAL IV ONE (16:00)
[2024-12-13] MEDS ORDERED: **hydrALAZINE HCL** 25 MG TAB PO PRN (16:45)
[2024-12-13] MEDS: HEPARIN SOD 5000 UNITS/ML 1 ML VIAL/SYRINGE SC SCH (21:23)
[2024-12-13] MEDS: ACETAMINOPHEN 325 MG TAB PO PRN (21:45)
[2024-12-14] VITALS (15 sets, daily range): BP systolic 159–194; BP diastolic 74–110; TEMP 97–98; O2SAT 88–96
[2024-12-14] MEDS: hydrALAZINE 20 MG/ML 1 ML VIAL IV PRN (01:16)
[2024-12-14 05:35] LABS: BASO # 0.0 10^3/uL (0.0-0.2); BASO % 0.3 % (0.0-1.0); EOS # 0.0 10^3/uL (0.0-0.5); EOS % 0.0 % (0.0-3.0); LYMPH # 2.0 10^3/uL (1.5-5.0); LYMPH % 14.8 % (24.0-44.0); MONO # 0.6 10^3/uL (0.0-0.8); MONO % 4.7 % (2.0-8.0); NEUTROPHILS # 10.6 10^3/uL (1.5-8.5); NEUTROPHILS % 78.5 % (36.0-66.0); PLATELET COUNT, AUTOMATED 259 10^3/uL (150-450)
[2024-12-14 06:19] LABS: ALT/SGPT 57.0 U/L (7.0-40); AST/SGOT 29.0 U/L (<34); CALCIUM LEVEL 9.7 MG/DL (8.5-10.1); CARBON DIOXIDE LEVEL 28.0 MMOL/L (20-31); CHLORIDE LEVEL 105.0 MMOL/L (98-107); CREATININE FOR GFR 1.09 MG/DL (0.55-1.30); GLOMERULAR FILTRATION RATE 62.7 (>58); MAGNESIUM LEVEL 1.8 MG/DL (1.8-2.4); POTASSIUM SERUM 4.3 MMOL/L (3.5-5.1); SODIUM LEVEL 142.0 MMOL/L (136-145)
[2024-12-14] MEDS: **hydrALAZINE** 50 MG TAB PO ONE (11:03)
[2024-12-14] MEDS: LABETALOL 100 MG/20 ML VIAL IV STA (13:17)
[2024-12-14] MEDS ORDERED: PRED10TA2 PO (13:57)
[2024-12-14] MEDS ORDERED: CARV25TA PO (13:57)
[2024-12-14] MEDS ORDERED: MUCI600T31 PO (13:57)
[2024-12-14] MEDS ORDERED: METF500T13 PO (13:59)
[2024-12-14] MEDS ORDERED: AMLO-751 PO (14:02)
[2024-12-14] MEDS ORDERED: LISI20TA33 PO (14:02)
[2024-12-14] MEDS ORDERED: VENTAER INH (14:02)
[2024-12-14] MEDS ORDERED: SYMB80INH INH (14:02)
[2024-12-15] MEDS ORDERED: predniSONE 20 MG TAB PO SCH (09:00)
== END 2024-12-14 15:30 | disposition home or self-care (01) | DRG 133 ==
LOC: M ED 00:49 → CANBEDREQ 02:36 → M ED INP 05:09 → M ICU 09:02 → M MS4PR 12-11 10:36 → M ICU 12-12 04:58
PROVIDERS: ADMIT Student in an Organized Health Care Education/Training Program; ATTEND Internal Medicine
DX: J96.01 Acute respiratory failure with hypoxia (principal); I50.33 Acute on chronic diastolic (congestive) heart failure; J45.901 Unspecified asthma with (acute) exacerbation; E78.5 Hyperlipidemia, unspecified; E11.9 Type 2 diabetes mellitus without complications; D72.829 Elevated white blood cell count, unspecified; J44.9 Chronic obstructive pulmonary disease, unspecified; I11.0 Hypertensive heart disease with heart failure; F17.210 Nicotine dependence, cigarettes, uncomplicated; I25.10 Atherosclerotic heart disease of native coronary artery without angina pectoris; R00.0 Tachycardia, unspecified; F41.9 Anxiety disorder, unspecified; G43.909 Migraine, unspecified, not intractable, without status migrainosus; F17.200 Nicotine dependence, unspecified, uncomplicated; K76.9 Liver disease, unspecified; Z79.899 Other long term (current) drug therapy; Z79.82 Long term (current) use of aspirin